=== PATIENT | female | born 1965 | race Hispanic/Latino ===

== ENCOUNTER 2018-05-31 20:38 | Observation (INO) | payer SELFPAY ==
[2018-05-31 21:55] LABS: CKMB 1.4 ng/mL (0-6.6); Troponin I Less than 0.010 ng/mL (< 0.028)
[2018-05-31 22:27] VITALS: BMI 32.1
[2018-05-31] MEDS ORDERED: Acetaminophen 325 MG TAB PO PRN (22:46)
[2018-05-31] MEDS ORDERED: Ondansetron ODT 4 MG TAB SL PRN (22:46)
[2018-05-31] MEDS ORDERED: Ondansetron HCl/PF 4 MG/2 ML Vial IVP PRN (22:46)
[2018-06-01 00:20] LABS: Troponin I Less than 0.010 ng/mL (< 0.028)
[2018-06-01] MEDS ORDERED: ADENOSINE 60 MG/20 ML VIAL ONE (10:38)
--- NOTE | 2018-06-01 12:35 | NM ---
RADIONUCLIDE STRESS AND REST MYOCARDIAL PERFUSION SCAN WITH CT ATTENUATION CORRECTION AND SPECT IMAGI NG: LEFT VENTRICULAR WALL MOTION EVALUATION AND EJECTION FRACTION: HISTORY: Chest pain. FINDINGS: Adenosine protocol. Homogeneous uptake of radiotracer throughout the left ventricular myocardium. No focal perfusion def ect or reversibility. QGS analysis of gated SPECT images shows no focal wall motion abnormalities. The left ventricular ejection fraction is calculated at greater than 50%. IMPRESSION: Normal myocardial perfusion scan. Normal left ventricular ejection fraction. POS: DARRON
[2018-06-01 13:06] VITALS: BP 129/61; TEMP 97.9
--- NOTE | 2018-06-01 14:51 | HP ---
PRIMARY CARE PHYSICIAN: Fernanda Arredondo M.D. CHIEF COMPLAINT: Chest pain. HISTORY OF PRESENT ILLNESS: This is a 52-year-old female who presented to [facility] Emergency Department complaining of central chest pain with burning sensation into her throat with associated bilateral upper extremity tingling. The patient states the symptoms began while waiting in a car for her and she reported being diaphoretic, short of breath and nauseous with the sy mptoms of chest pain. The patient states her father had a myocardial infarction at the age of 70 and has a family history of hypertension. The patient reported mid chest discomfort radiation into her neck and jaw region. The patient denied any personal history of coronary artery disease, recent trau ma, injury, fever, chills, or direct trauma. In the emergency room, the patient underwent general ev aluation, receiving aspirin and transferred to the observation unit for further evaluation. PAST MEDICAL HISTORY: 1. Hyperlipidemia, untreated. 2. Question of hypertension, untreated. PAST SURGICAL HISTORY: Reviewed and negative. CURRENT MEDICATIONS: Reviewed and negative. ALLERGIES: No known drug allergies. FAMILY HISTORY: Positive for coronary artery disease with her father sustaining a myocardial infarct ion at age 70. SOCIAL HISTORY: Patient resides in [place], [place]. Currently, unemployed. No alcohol, tobacco or i llicit drug use. REVIEW OF SYSTEMS: The following complete review of systems was negative, unless otherwise mentioned in the HPI or below: Constitutional: Weight loss or gain, ability to conduct usual activities. Skin: Rash, itching. Eyes: Double vision, pain. ENT/Mouth: Nose bleeding, neck stiffness, pain, tenderness. Cardiovascular: Palpitations, dyspnea on exertion, orthopnea. Respiratory: Shortness of breath, wheezing, cough, hemoptysis, fever or night sweats. Gastrointestinal: Poor appetite, abdominal pain, heartburn, nausea, vomiting, constipation, or diarr hea. Genitourinary: Urgency, frequency, dysuria, nocturia. Musculoskeletal: Pain, swelling. Neurologic/Psychiatric: Anxiety, depression. Allergy/Immunologic: Skin rash, bleeding tendency. Otherwise negative except as stated per HPI. PHYSICAL EXAMINATION: VITAL SIGNS: On admission, blood pressure 142/90, pulse 68, respiratory rate 19, temperature 98.5 de grees Fahrenheit, O2 saturation 96% on room air. GENERAL APPEARANCE: This is a 52-year-old female, alert and oriented x3, pleasant, conversa nt, in no acute distress. HEENT: Pupils are equal, round, and reactive to light and accommodation. Extraocular muscles are in tact. No scleral icterus, no conjunctival injection. Nares patent. OP is clear. Teeth in good rep air. NECK: Supple, no cervical adenopathy, no thyromegaly, no carotid bruits, no JVD appreciated. Cervic al spine with full active and passive range of motion. CHEST: Lungs are clear to auscultation bilaterally. CARDIOVASCULAR: S1, S2, without noted murmur, rub or gallop. ABDOMEN: Obese, soft, nontender, nondistended. Bowel sounds are positive in all four quadrants. Th ere is no hepatosplenomegaly, no abdominal bruits, no rebound or guarding appreciated. EXTREMITIES: Warm and dry with fair turgor. No clubbing, cyanosis or asymmetric edema appreciated. Pulses palpable distally at the dorsalis pedis, posterior tibial and popliteal arteries bilaterally. NEUROLOGIC: Cranial nerves II-XII are grossly intact. No focal or lateralizing signs appreciated. PERTINENT LABORATORY DATA AND X-RAY FINDINGS: Basic metabolic profile within normal limits. AST 71, ALT of 82, total bilirubin 1.4, troponin I negative x3. BNP less than 10, albumin 4.8. CBC within normal limits. EKG dated 05/31/2018 by my interpretation shows sinus mechanism with heart rates in t he 70s. Normal R-wave progression noted in precordial leads. Normal axis. No acute ST-T wave ernst es appreciated. Portable chest x-ray dated 05/31/2018 showed no acute cardiopulmonary process. Card iolite stress test dated 06/01/2018 showed no reversible or fixed ischemia with calculated ejection f raction of 50%. ASSESSMENT AND PLAN: 1. Chest pain. Noncardiac and likely secondary to esophagitis in conjunction with gastroesophageal reflux. Recommend [id number] Pepcid or Zantac for relief. No current evidence to suggest card iac etiology. 2. Transaminitis. Suspect secondarily to hepatic steatosis. 3. Code status is FULL. Surrogate medical decision maker is the patient's . DISPOSITION: Discharged home 06/01/2018. The patient to follow up with her primary care provider, Frankie Arredondo within 7 days of discharge.
== END 2018-06-01 14:06 | disposition home or self-care (01) ==
LOC: ERS 20:38 → 2SW 21:01
PROVIDERS: ADMIT Hospitalist; ATTEND Hospitalist
DX: R07.89 Other chest pain (principal); R06.02 Shortness of breath; R11.0 Nausea; E78.5 Hyperlipidemia, unspecified; R74.0 Nonspecific elevation of levels of transaminase and lactic acid dehydrogenase [LDH]
CPT/HCPCS: 36415; 78452; 82553; 90471; 90686; 93005; 93017; A9500; G0008; G0378; J0153